=== PATIENT | female | born 1965 | race Caucasian/White ===

== ENCOUNTER 2016-12-18 18:32 | Emergency (ER) | payer MEDICAID ==
[~2016-12-18 18:32] MED LIST: COLACE100 MG PO; COUMADIN1 MG PO; COUMADIN5 MG PO; DIL2 PO; HYDROMORPHONE2 M1 PO; LEVOTHROID PO; LEVOTHYROXINE PO; NITROFURANTOIN100 MG PO; PER5 PO; PHENAZOPYRIDIN200 M3 PO; PRI20 PO; PROAIR HFA0.09 MG/A1 IH; PROAIR HFA0.09 MG/A1 INH; PROAIR HFA0.09 MG/Ac IH; PROAIR INH; SING10 PO; SYN88 PO; VENTOLIN H0.09 MG/A1 IH; WARFARIN SODIUM5 MG PO; XARELTO15 M1 PO
== END 2016-12-18 20:53 | disposition left against medical advice (07) ==
LOC: ED 18:32
DX: Z53.21 Procedure and treatment not carried out due to patient leaving prior to being seen by health care provider (principal)

== ENCOUNTER 2016-12-19 04:10 | Emergency (ER) | payer MEDICAID ==
[2016-12-19 05:05] VITALS: BP 131/98
== END 2016-12-19 05:05 | disposition home or self-care (01) ==
LOC: ED 04:10
DX: R06.00 Dyspnea, unspecified (principal); R07.0 Pain in throat; R07.89 Other chest pain; E03.9 Hypothyroidism, unspecified
CPT/HCPCS: J1885; J7613

== ENCOUNTER 2016-12-19 15:45 | Emergency (ER) | payer MEDICAID ==
[~2016-12-19] VITALS: Ht 154.9 cm; Wt 71.7 kg
[2016-12-19 20:09] LABS: BASOPHIL % 0.4 % (0-2); PLATELET COUNT 235 x10^3mcL (130-400); RED CELL DISTRIBUTION WIDTH 13.6 % (11.5-14.5)
[2016-12-19 20:39] LABS: CALCIUM 8.8 mg/dL (8.5-10.1); CARBON DIOXIDE 27.2 mmol/L (21-32); CHLORIDE SERUM 107 mmol/L (98-107); CREATININE SERUM 0.7 mg/dL (0.6-1.0); GFR1 > 60 mL/min; GLUCOSE SERUM 103 mg/dL (74-106); POTASSIUM SERUM 4.1 mmol/L (3.5-5.1); SODIUM SERUM 143 mmol/L (136-145)
[2016-12-19 20:43] LABS: ALBUMIN 3.4 g/dL (3.4-5.0); ALKALINE PHOSPHATASE 55 U/L (46-116); ALT/SGPT 19 U/L (14-59); AST/SGOT 14 U/L (15-37); BILIRUBIN TOTAL 0.5 mg/dL (0.20-1.00); TOTAL PROTEIN, SERUM 6.5 g/dL (6.4-8.2)
[2016-12-20 01:00] VITALS: BP 95/67
== END 2016-12-20 01:00 | disposition home or self-care (01) ==
LOC: ED 15:45
PROVIDERS: Emergency Medicine
DX: R06.00 Dyspnea, unspecified (principal); R07.9 Chest pain, unspecified; G89.29 Other chronic pain; E03.9 Hypothyroidism, unspecified; Z88.5 Allergy status to narcotic agent; Z79.899 Other long term (current) drug therapy
CPT/HCPCS: 85378; J7030; Q9967

== ENCOUNTER 2016-12-23 21:09 | Emergency (ER) | payer MEDICAID ==
[2016-12-23 22:14] LABS: BASOPHIL % 0.4 % (0-2); PLATELET COUNT 249 x10^3mcL (130-400); RED CELL DISTRIBUTION WIDTH 13.9 % (11.5-14.5)
[2016-12-23 22:19] LABS: CALCIUM 8.8 mg/dL (8.5-10.1); CARBON DIOXIDE 27.6 mmol/L (21-32); CHLORIDE SERUM 105 mmol/L (98-107); CREATININE SERUM 0.8 mg/dL (0.6-1.0); GFR1 > 60 mL/min; GLUCOSE SERUM 123 mg/dL (74-106); POTASSIUM SERUM 3.5 mmol/L (3.5-5.1); SODIUM SERUM 142 mmol/L (136-145)
[2016-12-23 22:24] LABS: ALBUMIN 3.6 g/dL (3.4-5.0); ALKALINE PHOSPHATASE 65 U/L (46-116); ALT/SGPT 23 U/L (14-59); AST/SGOT 16 U/L (15-37); BILIRUBIN TOTAL 0.4 mg/dL (0.20-1.00); TOTAL PROTEIN, SERUM 6.6 g/dL (6.4-8.2)
[2016-12-24 00:06] VITALS: BP 120/80
== END 2016-12-24 00:06 | disposition home or self-care (01) ==
LOC: ED 21:09
PROVIDERS: Specialist
DX: R07.9 Chest pain, unspecified (principal); J98.01 Acute bronchospasm; E03.9 Hypothyroidism, unspecified; F41.9 Anxiety disorder, unspecified; K21.9 Gastro-esophageal reflux disease without esophagitis; Z88.5 Allergy status to narcotic agent
CPT/HCPCS: 83880; J1885; J7613; J7644; Q0092

== ENCOUNTER 2016-12-31 19:00 | Emergency (ER) | payer MEDICAID ==
[~2016-12-31] VITALS: Ht 160 cm; Wt 69.8 kg
[2016-12-31 23:15] VITALS: BP 152/98
== END 2016-12-31 23:15 | disposition left against medical advice (07) ==
LOC: ED 19:00
DX: Z53.21 Procedure and treatment not carried out due to patient leaving prior to being seen by health care provider (principal)

== ENCOUNTER 2017-01-06 20:24 | Emergency (ER) | payer MEDICAID ==
[2017-01-06 23:09] VITALS: BP 144/76
== END 2017-01-06 23:09 | disposition home or self-care (01) ==
LOC: ED 20:24
DX: R07.89 Other chest pain (principal); E03.9 Hypothyroidism, unspecified; G89.29 Other chronic pain; Z88.5 Allergy status to narcotic agent; Z79.899 Other long term (current) drug therapy

== ENCOUNTER 2017-01-11 12:29 | Emergency (ER) | payer MEDICAID ==
[~2017-01-11] VITALS: Ht 157.5 cm; Wt 72.7 kg
[2017-01-11 14:04] VITALS: BP 134/89
== END 2017-01-11 14:11 | disposition home or self-care (01) ==
LOC: ED 12:29
DX: R07.89 Other chest pain (principal); R06.2 Wheezing; E03.9 Hypothyroidism, unspecified; Z86.718 Personal history of other venous thrombosis and embolism; Z79.899 Other long term (current) drug therapy; Z88.5 Allergy status to narcotic agent
CPT/HCPCS: J1885; J7620

== ENCOUNTER 2017-02-09 19:13 | Emergency (ER) | payer MEDICAID ==
[2017-02-09 20:58] LABS: BASOPHIL % 0.4 % (0-2); PLATELET COUNT 245 x10^3mcL (130-400); RED CELL DISTRIBUTION WIDTH 13.7 % (11.5-14.5)
[2017-02-09 21:12] LABS: CARBON DIOXIDE 26.5 mmol/L (21-32); CHLORIDE SERUM 105 mmol/L (98-107); CREATININE SERUM 0.7 mg/dL (0.6-1.0); GFR1 > 60 mL/min; GLUCOSE SERUM 121 mg/dL (74-106); POTASSIUM SERUM 3.6 mmol/L (3.5-5.1); SODIUM SERUM 139 mmol/L (136-145)
[2017-02-09 21:17] LABS: ALBUMIN 3.4 g/dL (3.4-5.0); ALKALINE PHOSPHATASE 66 U/L (46-116); ALT/SGPT 28 U/L (14-59); AST/SGOT 21 U/L (15-37); BILIRUBIN TOTAL 0.58 mg/dL (0.20-1.00); TOTAL PROTEIN, SERUM 6.7 g/dL (6.4-8.2)
[2017-02-09 21:21] LABS: CK-MB 0.5 ng/mL (0-3.6)
[2017-02-09 23:18] VITALS: BP 106/54
== END 2017-02-09 23:18 | disposition home or self-care (01) ==
LOC: ED 19:13
PROVIDERS: Emergency Medicine
DX: R11.10 Vomiting, unspecified (principal); R19.7 Diarrhea, unspecified; R07.89 Other chest pain; E03.9 Hypothyroidism, unspecified; G89.29 Other chronic pain; R07.0 Pain in throat; Z88.5 Allergy status to narcotic agent; Z88.8 Allergy status to other drugs, medicaments and biological substances; Z86.79 Personal history of other diseases of the circulatory system
CPT/HCPCS: 83880; J2405; J3010; J7030; J7613; J7644; Q0092

== ENCOUNTER 2017-02-24 10:58 | Emergency (ER) | payer MEDICAID ==
[~2017-02-24] VITALS: Ht 157.5 cm; Wt 71.7 kg
[2017-02-24 12:48] VITALS: BP 104/52
== END 2017-02-24 12:48 | disposition home or self-care (01) ==
LOC: ED 10:58
DX: R07.89 Other chest pain (principal); R06.2 Wheezing; R06.02 Shortness of breath; E03.9 Hypothyroidism, unspecified; Z88.5 Allergy status to narcotic agent; Z79.899 Other long term (current) drug therapy
CPT/HCPCS: J7620

== ENCOUNTER 2017-03-08 21:19 | Emergency (ER) | payer MEDICAID ==
[~2017-03-08] VITALS: Ht 165.1 cm; Wt 71.2 kg
[2017-03-09 00:32] VITALS: BP 138/79
== END 2017-03-09 00:32 | disposition home or self-care (01) ==
LOC: ED 21:19
DX: R20.2 Paresthesia of skin (principal); E03.9 Hypothyroidism, unspecified; G89.29 Other chronic pain; R07.0 Pain in throat; Z51.81 Encounter for therapeutic drug level monitoring
CPT/HCPCS: 36415

== ENCOUNTER 2017-03-15 22:01 | Emergency (ER) | payer MEDICAID ==
[2017-03-15 22:57] LABS: BASOPHIL % 0.3 % (0-2); PLATELET COUNT 268 x10^3mcL (130-400); RED CELL DISTRIBUTION WIDTH 13.9 % (11.5-14.5)
[2017-03-15 23:07] LABS: CALCIUM 9.1 mg/dL (8.5-10.1); CARBON DIOXIDE 27.2 mmol/L (21-32); CHLORIDE SERUM 103 mmol/L (98-107); CREATININE SERUM 0.7 mg/dL (0.6-1.0); GFR1 > 60 mL/min; GLUCOSE SERUM 104 mg/dL (74-106); POTASSIUM SERUM 3.5 mmol/L (3.5-5.1); SODIUM SERUM 138 mmol/L (136-145)
[2017-03-15 23:11] LABS: ALBUMIN 3.9 g/dL (3.4-5.0); ALKALINE PHOSPHATASE 60 U/L (46-116); ALT/SGPT 21 U/L (14-59); AST/SGOT 15 U/L (15-37); BILIRUBIN TOTAL 0.6 mg/dL (0.20-1.00); TOTAL PROTEIN, SERUM 7.2 g/dL (6.4-8.2)
[2017-03-15 23:16] LABS: CK-MB 0.9 ng/mL (0-3.6)
[2017-03-16 01:16] VITALS: BP 142/87
== END 2017-03-16 01:16 | disposition home or self-care (01) ==
LOC: ED 22:01
PROVIDERS: Emergency Medicine
DX: E86.0 Dehydration (principal); Z88.5 Allergy status to narcotic agent; Z88.8 Allergy status to other drugs, medicaments and biological substances; Z79.01 Long term (current) use of anticoagulants
CPT/HCPCS: J7030

== ENCOUNTER 2017-03-16 15:59 | Emergency (ER) | payer MEDICAID ==
[2017-03-16 21:49] VITALS: BP 122/73
== END 2017-03-16 21:49 | disposition home or self-care (01) ==
LOC: ED 15:59
DX: R51 Headache (principal); R19.7 Diarrhea, unspecified; R11.10 Vomiting, unspecified; E03.9 Hypothyroidism, unspecified; Z79.899 Other long term (current) drug therapy; Z86.711 Personal history of pulmonary embolism
CPT/HCPCS: J1200; J1885; J2765; J7030; Q0162

== ENCOUNTER 2017-04-17 18:01 | Emergency (ER) | payer MEDICAID ==
[2017-04-17 19:27] LABS: BASOPHIL % 0.6 % (0-2); PLATELET COUNT 267 x10^3mcL (130-400); RED CELL DISTRIBUTION WIDTH 13.3 % (11.5-14.5)
[2017-04-17 19:34] LABS: CALCIUM 8.7 mg/dL (8.5-10.1); CARBON DIOXIDE 25.2 mmol/L (21-32); CHLORIDE SERUM 106 mmol/L (98-107); CREATININE SERUM 0.7 mg/dL (0.6-1.0); GFR1 > 60 mL/min; GLUCOSE SERUM 103 mg/dL (74-106); POTASSIUM SERUM 3.6 mmol/L (3.5-5.1); SODIUM SERUM 140 mmol/L (136-145)
[2017-04-17 19:38] LABS: ALBUMIN 3.5 g/dL (3.4-5.0); ALKALINE PHOSPHATASE 56 U/L (46-116); ALT/SGPT 23 U/L (14-59); AMYLASE 77 U/L (25-115); AST/SGOT 16 U/L (15-37); LIPASE 180 IU/L (73-393); TOTAL PROTEIN, SERUM 6.9 g/dL (6.4-8.2)
[2017-04-17 22:30] LABS: AMPHETAMINE QUAL UR NONE DETECTED (NEG <=1000)
[2017-04-17 22:47] VITALS: BP 128/87
== END 2017-04-17 23:28 | disposition left against medical advice (07) ==
LOC: ED 18:01
PROVIDERS: Emergency Medicine
DX: R07.89 Other chest pain (principal); E03.9 Hypothyroidism, unspecified; Z86.711 Personal history of pulmonary embolism; Z79.01 Long term (current) use of anticoagulants; Z88.5 Allergy status to narcotic agent; Z88.8 Allergy status to other drugs, medicaments and biological substances
CPT/HCPCS: 85378; G0480; J1200; J2930; Q9967

== ENCOUNTER 2017-04-23 12:54 | Emergency (ER) | payer MEDICAID ==
[2017-04-23 16:49] LABS: CALCIUM 8.6 mg/dL (8.5-10.1); CARBON DIOXIDE 26.2 mmol/L (21-32); CHLORIDE SERUM 106 mmol/L (98-107); CREATININE SERUM 0.6 mg/dL (0.6-1.0); GFR1 > 60 mL/min; GLUCOSE SERUM 82 mg/dL (74-106); POTASSIUM SERUM 3.3 mmol/L (3.5-5.1); SODIUM SERUM 141 mmol/L (136-145)
[2017-04-23 16:50] LABS: BASOPHIL % 0.6 % (0-2); PLATELET COUNT 258 x10^3mcL (130-400); RED CELL DISTRIBUTION WIDTH 13.2 % (11.5-14.5)
[2017-04-23 16:53] LABS: ALBUMIN 3.4 g/dL (3.4-5.0); ALKALINE PHOSPHATASE 61 U/L (46-116); ALT/SGPT 22 U/L (14-59); AST/SGOT 16 U/L (15-37); BILIRUBIN TOTAL 0.44 mg/dL (0.20-1.00)
[2017-04-23 17:12] VITALS: BP 131/74
== END 2017-04-23 18:53 | disposition home or self-care (01) ==
LOC: ED 12:54
PROVIDERS: Specialist
DX: R07.9 Chest pain, unspecified (principal); J98.01 Acute bronchospasm; E87.6 Hypokalemia; G89.29 Other chronic pain; E03.9 Hypothyroidism, unspecified; Z88.5 Allergy status to narcotic agent; Z88.8 Allergy status to other drugs, medicaments and biological substances
CPT/HCPCS: 36415; 83880; J1885; J7613; J7644; Q0092

== ENCOUNTER 2017-05-30 21:29 | Emergency (ER) | payer MEDICAID ==
[2017-05-30 23:28] LABS: BASOPHIL % 0.7 % (0-2); PLATELET COUNT 249 x10^3mcL (130-400); RED CELL DISTRIBUTION WIDTH 12.9 % (11.5-14.5)
[2017-05-30 23:34] LABS: CALCIUM 8.5 mg/dL (8.5-10.1); CARBON DIOXIDE 28.6 mmol/L (21-32); CHLORIDE SERUM 105 mmol/L (98-107); CREATININE SERUM 0.7 mg/dL (0.6-1.0); GFR1 > 60 mL/min; GLUCOSE SERUM 93 mg/dL (74-106); POTASSIUM SERUM 3.6 mmol/L (3.5-5.1); SODIUM SERUM 137 mmol/L (136-145)
[2017-05-31 00:42] VITALS: BP 127/78
== END 2017-05-31 00:42 | disposition home or self-care (01) ==
LOC: ED 21:29
PROVIDERS: Emergency Medicine
DX: R06.02 Shortness of breath (principal); R51 Headache; Z85.42 Personal history of malignant neoplasm of other parts of uterus; Z90.710 Acquired absence of both cervix and uterus; E03.9 Hypothyroidism, unspecified; Z88.5 Allergy status to narcotic agent
CPT/HCPCS: 36415; Q0092

== ENCOUNTER 2017-06-28 18:21 | Emergency (ER) | payer MEDICAID ==
[2017-06-28 21:50] VITALS: BP 108/64
== END 2017-06-28 22:07 | disposition home or self-care (01) ==
LOC: ED 18:21
DX: J38.6 Stenosis of larynx (principal); E03.9 Hypothyroidism, unspecified; Z88.5 Allergy status to narcotic agent; Z88.8 Allergy status to other drugs, medicaments and biological substances
CPT/HCPCS: J1100; J7613

== ENCOUNTER 2017-07-15 19:46 | Emergency (ER) | payer MEDICAID ==
[2017-07-15 23:04] LABS: BASOPHIL % 1.3 % (0-2); PLATELET COUNT 287 x10^3mcL (130-400); RED CELL DISTRIBUTION WIDTH 13.6 % (11.5-14.5)
[2017-07-15 23:19] LABS: CALCIUM 8.5 mg/dL (8.5-10.1); CARBON DIOXIDE 28.6 mmol/L (21-32); CHLORIDE SERUM 105 mmol/L (98-107); CREATININE SERUM 0.7 mg/dL (0.6-1.0); GFR1 > 60 mL/min; GLUCOSE SERUM 95 mg/dL (74-106); POTASSIUM SERUM 3.8 mmol/L (3.5-5.1); SODIUM SERUM 139 mmol/L (136-145)
[2017-07-15 23:24] LABS: ALBUMIN 3.4 g/dL (3.4-5.0); ALKALINE PHOSPHATASE 71 U/L (46-116); ALT/SGPT 26 U/L (14-59); AST/SGOT 18 U/L (15-37); BILIRUBIN TOTAL 0.9 mg/dL (0.20-1.00); TOTAL PROTEIN, SERUM 7.1 g/dL (6.4-8.2)
[2017-07-15 23:58] VITALS: BP 110/65
== END 2017-07-15 23:45 | disposition home or self-care (01) ==
LOC: ED 19:46
PROVIDERS: Specialist
DX: J45.909 Unspecified asthma, uncomplicated (principal); E03.9 Hypothyroidism, unspecified; Z88.5 Allergy status to narcotic agent; Z88.6 Allergy status to analgesic agent
CPT/HCPCS: 36415; 83880; J1885; J7613; J7644; Q0092

== ENCOUNTER 2017-07-19 19:48 | Emergency (ER) | payer MEDICAID ==
[~2017-07-19] VITALS: Ht 157.5 cm; Wt 72.6 kg
[2017-07-19 20:52] LABS: microscopic required? NO
[2017-07-19 20:55] LABS: BASOPHIL % 0.4 % (0-2); PLATELET COUNT 252 x10^3mcL (130-400); RED CELL DISTRIBUTION WIDTH 13.9 % (11.5-14.5)
[2017-07-19 20:58] LABS: CALCIUM 8.4 mg/dL (8.5-10.1); CHLORIDE SERUM 106 mmol/L (98-107); CREATININE SERUM 0.8 mg/dL (0.6-1.0); GFR1 > 60 mL/min; GLUCOSE SERUM 126 mg/dL (74-106); POTASSIUM SERUM 3.1 mmol/L (3.5-5.1); SODIUM SERUM 140 mmol/L (136-145)
[2017-07-19 21:01] LABS: UA SPECIFIC GRAVITY 1.025 (1.005-1.035); urine erythrocyte NEGATIVE (NEGATIVE)
[2017-07-19 21:03] LABS: ALBUMIN 3.3 g/dL (3.4-5.0); ALKALINE PHOSPHATASE 70 U/L (46-116); ALT/SGPT 31 U/L (14-59); AST/SGOT 22 U/L (15-37); BILIRUBIN TOTAL 0.4 mg/dL (0.20-1.00); TOTAL PROTEIN, SERUM 6.6 g/dL (6.4-8.2)
[2017-07-19 21:10] LABS: AMPHETAMINE QUAL UR NONE DETECTED (NEG <=1000)
[2017-07-19 23:14] VITALS: BP 132/96
== END 2017-07-19 23:14 | disposition left against medical advice (07) ==
LOC: ED 19:48
PROVIDERS: Emergency Medicine
DX: R06.02 Shortness of breath (principal); R07.9 Chest pain, unspecified; E03.9 Hypothyroidism, unspecified; G89.29 Other chronic pain; Z88.5 Allergy status to narcotic agent
CPT/HCPCS: 36415; J7620

== ENCOUNTER 2017-08-04 15:21 | Emergency (ER) | payer MEDICAID ==
[2017-08-04 18:32] LABS: BASOPHIL % 0.4 % (0-2); PLATELET COUNT 316 x10^3mcL (130-400); RED CELL DISTRIBUTION WIDTH 14.2 % (11.5-14.5)
[2017-08-04 18:38] LABS: CALCIUM 8.7 mg/dL (8.5-10.1); CARBON DIOXIDE 30.5 mmol/L (21-32); CHLORIDE SERUM 105 mmol/L (98-107); CREATININE SERUM 0.8 mg/dL (0.6-1.0); GFR1 > 60 mL/min; GLUCOSE SERUM 109 mg/dL (74-106); POTASSIUM SERUM 3.3 mmol/L (3.5-5.1); SODIUM SERUM 141 mmol/L (136-145)
[2017-08-04 18:43] LABS: ALBUMIN 3.6 g/dL (3.4-5.0); ALKALINE PHOSPHATASE 72 U/L (46-116); ALT/SGPT 29 U/L (14-59); AST/SGOT 20 U/L (15-37); BILIRUBIN TOTAL 0.52 mg/dL (0.20-1.00); TOTAL PROTEIN, SERUM 7.2 g/dL (6.4-8.2)
[2017-08-04 19:24] VITALS: BP 133/107
== END 2017-08-04 19:24 | disposition home or self-care (01) ==
LOC: ED 15:21
PROVIDERS: Emergency Medicine
DX: R07.89 Other chest pain (principal); E03.9 Hypothyroidism, unspecified; G89.29 Other chronic pain; R07.0 Pain in throat; Z88.5 Allergy status to narcotic agent; Z88.8 Allergy status to other drugs, medicaments and biological substances; Z79.01 Long term (current) use of anticoagulants
CPT/HCPCS: 36415; 83880; J7613; J7644; Q0092

== ENCOUNTER 2017-08-25 18:55 | Emergency (ER) | payer MEDICAID ==
[2017-08-25 21:16] VITALS: BP 129/87
== END 2017-08-25 21:16 | disposition home or self-care (01) ==
LOC: ED 18:55
DX: J45.909 Unspecified asthma, uncomplicated (principal); E03.9 Hypothyroidism, unspecified; G89.29 Other chronic pain; R07.0 Pain in throat; Z88.8 Allergy status to other drugs, medicaments and biological substances; Z88.5 Allergy status to narcotic agent; Z79.01 Long term (current) use of anticoagulants
CPT/HCPCS: J1100; J7613; J7620

== ENCOUNTER 2017-09-14 05:43 | Emergency (ER) | payer MEDICAID ==
[~2017-09-14] VITALS: Ht 157.5 cm; Wt 69.8 kg
[2017-09-14 05:54] VITALS: Ht 157.5 cm; Wt 69.8 kg
[2017-09-14 08:44] VITALS: BP 108/62
== END 2017-09-14 08:44 | disposition home or self-care (01) ==
LOC: ED 05:43
DX: J06.9 Acute upper respiratory infection, unspecified (principal); E03.9 Hypothyroidism, unspecified; Z85.42 Personal history of malignant neoplasm of other parts of uterus; Z90.710 Acquired absence of both cervix and uterus
CPT/HCPCS: J1100; J7620; Q0092

== ENCOUNTER 2017-09-25 18:18 | Emergency (ER) | payer MEDICAID ==
[2017-09-25 23:32] LABS: BASOPHIL % 0.7 % (0-2); PLATELET COUNT 267 x10^3mcL (130-400); RED CELL DISTRIBUTION WIDTH 13.7 % (11.5-14.5)
[2017-09-25 23:40] LABS: CALCIUM 8.7 mg/dL (8.5-10.1); CARBON DIOXIDE 26.7 mmol/L (21-32); CHLORIDE SERUM 105 mmol/L (98-107); CREATININE SERUM 0.7 mg/dL (0.6-1.0); GFR1 > 60 mL/min; GLUCOSE SERUM 93 mg/dL (74-106); POTASSIUM SERUM 3.7 mmol/L (3.5-5.1); SODIUM SERUM 141 mmol/L (136-145)
[2017-09-25 23:46] LABS: ALBUMIN 3.7 g/dL (3.4-5.0); ALKALINE PHOSPHATASE 60 U/L (46-116); ALT/SGPT 25 U/L (14-59); AST/SGOT 18 U/L (15-37); BILIRUBIN TOTAL 0.5 mg/dL (0.20-1.00); TOTAL PROTEIN, SERUM 7.5 g/dL (6.4-8.2)
[2017-09-26 02:51] VITALS: BP 120/74
== END 2017-09-26 02:51 | disposition home or self-care (01) ==
LOC: ED 18:18
PROVIDERS: Emergency Medicine Emergency Medical Services
DX: J98.01 Acute bronchospasm (principal); E03.9 Hypothyroidism, unspecified; G89.29 Other chronic pain; R07.0 Pain in throat; Z88.5 Allergy status to narcotic agent; Z88.8 Allergy status to other drugs, medicaments and biological substances; Z86.79 Personal history of other diseases of the circulatory system
CPT/HCPCS: 36415; 85378; J7613; Q0092

== ENCOUNTER 2017-09-29 03:25 | Emergency (ER) | payer MEDICAID ==
[~2017-09-29] VITALS: Ht 157.5 cm; Wt 75.3 kg
[2017-09-29 03:57] VITALS: Ht 157.5 cm; Wt 75.3 kg
[2017-09-29 07:24] VITALS: BP 144/79
== END 2017-09-29 07:24 | disposition home or self-care (01) ==
LOC: ED 03:25
DX: J20.9 Acute bronchitis, unspecified (principal); E03.9 Hypothyroidism, unspecified; G89.29 Other chronic pain; R07.0 Pain in throat; Z88.5 Allergy status to narcotic agent; Z88.8 Allergy status to other drugs, medicaments and biological substances; Z86.79 Personal history of other diseases of the circulatory system
CPT/HCPCS: Q0092

== ENCOUNTER 2017-10-09 18:10 | Emergency (ER) | payer MEDICAID ==
[~2017-10-09] VITALS: Ht 157.5 cm; Wt 75.7 kg
[2017-10-09 18:23] VITALS: Ht 157.5 cm; Wt 75.7 kg
[2017-10-09 20:23] VITALS: BP 138/86
== END 2017-10-09 20:38 | disposition home or self-care (01) ==
LOC: ED 18:10
DX: J06.9 Acute upper respiratory infection, unspecified (principal); E03.9 Hypothyroidism, unspecified; Z85.42 Personal history of malignant neoplasm of other parts of uterus; Z90.710 Acquired absence of both cervix and uterus; Z88.5 Allergy status to narcotic agent
CPT/HCPCS: J1100

== ENCOUNTER 2017-10-23 20:39 | Emergency (ER) | payer MEDICAID ==
[~2017-10-23] VITALS: Ht 157.5 cm; Wt 74.8 kg
[2017-10-23 21:05] VITALS: Ht 157.5 cm; Wt 74.8 kg
[2017-10-23 22:52] VITALS: BP 99/70
== END 2017-10-23 22:52 | disposition home or self-care (01) ==
LOC: ED 20:39
DX: J20.9 Acute bronchitis, unspecified (principal)

== ENCOUNTER 2017-10-29 16:46 | Emergency (ER) | payer MEDICAID ==
[~2017-10-29] VITALS: Ht 157.5 cm; Wt 75.3 kg
[2017-10-29 17:05] VITALS: Ht 157.5 cm; Wt 75.3 kg
[2017-10-29 22:11] VITALS: BP 128/65
== END 2017-10-29 22:12 | disposition home or self-care (01) ==
LOC: ED 16:46
DX: J45.901 Unspecified asthma with (acute) exacerbation (principal); J06.9 Acute upper respiratory infection, unspecified; E03.9 Hypothyroidism, unspecified; Z90.710 Acquired absence of both cervix and uterus
CPT/HCPCS: J1100

== ENCOUNTER 2017-12-07 19:18 | Emergency (ER) | payer MEDICAID ==
[~2017-12-07] VITALS: Ht 154.9 cm; Wt 74.4 kg
[2017-12-07 19:35] VITALS: Ht 154.9 cm; Wt 74.4 kg
[2017-12-07 21:14] VITALS: BP 127/83
== END 2017-12-07 21:14 | disposition home or self-care (01) ==
LOC: ED 19:18
DX: S83.8X2A Sprain of other specified parts of left knee, initial encounter (principal); G89.29 Other chronic pain; R07.0 Pain in throat; E03.9 Hypothyroidism, unspecified; Z98.890 Other specified postprocedural states; Z86.79 Personal history of other diseases of the circulatory system; Z88.8 Allergy status to other drugs, medicaments and biological substances; Z88.5 Allergy status to narcotic agent; Y93.89 Activity, other specified; W18.30XA Fall on same level, unspecified, initial encounter; Y99.8 Other external cause status; Y92.89 Other specified places as the place of occurrence of the external cause

== ENCOUNTER 2018-01-05 08:29 | Emergency (ER) | payer MEDICAID ==
[~2018-01-05] VITALS: Ht 154.9 cm; Wt 73.0 kg
[2018-01-05 08:36] VITALS: Ht 154.9 cm; Wt 73.0 kg
[2018-01-05 09:53] LABS: BASOPHIL % 0.3 % (0-2); PLATELET COUNT 295 x10^3mcL (130-400); RED CELL DISTRIBUTION WIDTH 13.9 % (11.5-14.5)
[2018-01-05 10:00] LABS: CALCIUM 9.2 mg/dL (8.5-10.1); CARBON DIOXIDE 33.6 mmol/L (21-32); CHLORIDE SERUM 102 mmol/L (98-107); CREATININE SERUM 0.6 mg/dL (0.6-1.0); GFR1 > 60 mL/min; GLUCOSE SERUM 92 mg/dL (74-106); POTASSIUM SERUM 3.7 mmol/L (3.5-5.1); SODIUM SERUM 138 mmol/L (136-145)
[2018-01-05 10:13] VITALS: BP 116/79
== END 2018-01-05 10:13 | disposition home or self-care (01) ==
LOC: ED 08:29
PROVIDERS: Specialist
DX: R07.89 Other chest pain (principal); Z76.0 Encounter for issue of repeat prescription; E03.9 Hypothyroidism, unspecified; G89.29 Other chronic pain; R07.0 Pain in throat; Z86.79 Personal history of other diseases of the circulatory system; Z88.5 Allergy status to narcotic agent
CPT/HCPCS: 36415; Q0092

== ENCOUNTER 2018-01-13 16:05 | Emergency (ER) | payer MEDICAID ==
[~2018-01-13] VITALS: Ht 157.5 cm; Wt 75.3 kg
[2018-01-13 16:33] VITALS: Ht 157.5 cm; Wt 75.3 kg
[2018-01-13 17:27] LABS: BASOPHIL % 0.5 % (0-2); PLATELET COUNT 281 x10^3mcL (130-400); RED CELL DISTRIBUTION WIDTH 13.8 % (11.5-14.5)
[2018-01-13 17:37] LABS: CALCIUM 8.6 mg/dL (8.5-10.1); CARBON DIOXIDE 29.9 mmol/L (21-32); CHLORIDE SERUM 105 mmol/L (98-107); CREATININE SERUM 0.7 mg/dL (0.6-1.0); GFR1 > 60 mL/min; GLUCOSE SERUM 108 mg/dL (74-106); POTASSIUM SERUM 3.6 mmol/L (3.5-5.1); SODIUM SERUM 139 mmol/L (136-145)
[2018-01-13 17:41] LABS: ALBUMIN 3.7 g/dL (3.4-5.0); ALKALINE PHOSPHATASE 64 U/L (46-116); ALT/SGPT 23 U/L (14-59); AST/SGOT 16 U/L (15-37); BILIRUBIN TOTAL 0.5 mg/dL (0.20-1.00); TOTAL PROTEIN, SERUM 7.1 g/dL (6.4-8.2)
[2018-01-13 18:57] VITALS: BP 117/62
== END 2018-01-13 18:57 | disposition home or self-care (01) ==
LOC: ED 16:05
PROVIDERS: Emergency Medicine
DX: R07.2 Precordial pain (principal); E03.9 Hypothyroidism, unspecified; Z90.710 Acquired absence of both cervix and uterus; Z88.6 Allergy status to analgesic agent
CPT/HCPCS: 36415; 85378

== ENCOUNTER 2018-01-17 04:54 | Emergency (ER) | payer MEDICAID ==
[~2018-01-17] VITALS: Ht 157.5 cm; Wt 74.8 kg
[2018-01-17 04:59] VITALS: Ht 157.5 cm; Wt 74.8 kg
[2018-01-17 05:35] LABS: BASOPHIL % 0.5 % (0-2); PLATELET COUNT 277 x10^3mcL (130-400); RED CELL DISTRIBUTION WIDTH 13.8 % (11.5-14.5)
[2018-01-17 05:43] LABS: CARBON DIOXIDE 27.3 mmol/L (21-32); CHLORIDE SERUM 105 mmol/L (98-107); CREATININE SERUM 0.7 mg/dL (0.6-1.0); GFR1 > 60 mL/min; GLUCOSE SERUM 100 mg/dL (74-106); POTASSIUM SERUM 3.4 mmol/L (3.5-5.1); SODIUM SERUM 142 mmol/L (136-145)
[2018-01-17 05:48] LABS: ALBUMIN 3.8 g/dL (3.4-5.0); ALKALINE PHOSPHATASE 67 U/L (46-116); ALT/SGPT 21 U/L (14-59); AST/SGOT 20 U/L (15-37); TOTAL PROTEIN, SERUM 7.3 g/dL (6.4-8.2)
[2018-01-17 07:00] VITALS: BP 104/73
== END 2018-01-17 08:17 | disposition left against medical advice (07) ==
LOC: ED 04:54
PROVIDERS: Emergency Medicine
DX: R07.2 Precordial pain (principal); E03.9 Hypothyroidism, unspecified; Z88.6 Allergy status to analgesic agent; Z90.710 Acquired absence of both cervix and uterus
CPT/HCPCS: 36415; 83880; 85378; Q0092; Q9967

== ENCOUNTER 2018-01-17 18:35 | Emergency (ER) | payer MEDICAID ==
[~2018-01-17] VITALS: Ht 154.9 cm; Wt 72.1 kg
[2018-01-17 19:45] LABS: BASOPHIL % 0.8 % (0-2); PLATELET COUNT 280 x10^3mcL (130-400); RED CELL DISTRIBUTION WIDTH 13.9 % (11.5-14.5)
[2018-01-17 19:58] LABS: CARBON DIOXIDE 26.3 mmol/L (21-32); CHLORIDE SERUM 105 mmol/L (98-107); CREATININE SERUM 0.8 mg/dL (0.6-1.0); GFR1 > 60 mL/min; GLUCOSE SERUM 119 mg/dL (74-106); POTASSIUM SERUM 3.2 mmol/L (3.5-5.1); SODIUM SERUM 141 mmol/L (136-145)
[2018-01-17 20:02] LABS: ALBUMIN 3.9 g/dL (3.4-5.0); ALKALINE PHOSPHATASE 68 U/L (46-116); ALT/SGPT 22 U/L (14-59); AST/SGOT 17 U/L (15-37); BILIRUBIN TOTAL 0.8 mg/dL (0.20-1.00); TOTAL PROTEIN, SERUM 7.5 g/dL (6.4-8.2)
[2018-01-17 23:43] VITALS: BP 113/66
== END 2018-01-17 23:44 | disposition home or self-care (01) ==
LOC: ED 18:35
PROVIDERS: Emergency Medicine
DX: R07.89 Other chest pain (principal); J45.909 Unspecified asthma, uncomplicated; E03.9 Hypothyroidism, unspecified; Z88.5 Allergy status to narcotic agent
CPT/HCPCS: 83880; 85378; J1200; Q0092; Q9967

== ENCOUNTER 2018-01-28 15:57 | Emergency (ER) | payer SELFPAY ==
[~2018-01-28] VITALS: Ht 157.5 cm; Wt 72.6 kg
[2018-01-28 18:56] VITALS: BP 120/65
== END 2018-01-28 18:56 | disposition home or self-care (01) ==
LOC: ED 15:57
DX: T78.09XA Anaphylactic reaction due to other food products, initial encounter (principal); J45.909 Unspecified asthma, uncomplicated; E03.9 Hypothyroidism, unspecified; G89.29 Other chronic pain; R07.0 Pain in throat; Z90.710 Acquired absence of both cervix and uterus; Z88.5 Allergy status to narcotic agent
CPT/HCPCS: J7512

== ENCOUNTER 2018-03-18 16:49 | Emergency (ER) | payer MEDICAID ==
[~2018-03-18] VITALS: Ht 157.5 cm; Wt 72.6 kg
[2018-03-18 16:58] VITALS: Ht 157.5 cm; Wt 72.6 kg
[2018-03-18 19:18] VITALS: BP 113/65
== END 2018-03-18 19:18 | disposition home or self-care (01) ==
LOC: ED 16:49
DX: S70.01XA Contusion of right hip, initial encounter (principal); J45.909 Unspecified asthma, uncomplicated; Z88.5 Allergy status to narcotic agent; Z76.0 Encounter for issue of repeat prescription; X58.XXXA Exposure to other specified factors, initial encounter; Y93.89 Activity, other specified; Y92.89 Other specified places as the place of occurrence of the external cause; Y99.8 Other external cause status; E03.9 Hypothyroidism, unspecified
CPT/HCPCS: J1885

== ENCOUNTER 2018-03-21 16:32 | Emergency (ER) | payer MEDICAID ==
[~2018-03-21] VITALS: Ht 154.9 cm; Wt 72.8 kg
[2018-03-21 16:40] VITALS: Ht 154.9 cm; Wt 72.8 kg
[2018-03-21 17:33] LABS: BASOPHIL % 0.8 % (0-2); PLATELET COUNT 269 x10^3mcL (130-400); RED CELL DISTRIBUTION WIDTH 13.5 % (11.5-14.5)
[2018-03-21 18:44] LABS: CALCIUM 8.9 mg/dL (8.5-10.1); CARBON DIOXIDE 23.9 mmol/L (21-32); CHLORIDE SERUM 106 mmol/L (98-107); CREATININE SERUM 0.7 mg/dL (0.6-1.0); GFR1 > 60 mL/min; GLUCOSE SERUM 97 mg/dL (74-106); POTASSIUM SERUM 3.7 mmol/L (3.5-5.1); SODIUM SERUM 141 mmol/L (136-145)
[2018-03-21 18:48] LABS: ALBUMIN 3.6 g/dL (3.4-5.0); ALKALINE PHOSPHATASE 75 U/L (46-116); ALT/SGPT 19 U/L (14-59); AST/SGOT 19 U/L (15-37); BILIRUBIN TOTAL 0.35 mg/dL (0.20-1.00)
[2018-03-21 19:53] VITALS: BP 128/91
== END 2018-03-21 19:53 | disposition home or self-care (01) ==
LOC: ED 16:32
PROVIDERS: Emergency Medicine
DX: R07.89 Other chest pain (principal); F41.9 Anxiety disorder, unspecified; J45.909 Unspecified asthma, uncomplicated; G89.29 Other chronic pain; R07.0 Pain in throat; Z88.5 Allergy status to narcotic agent; Z88.8 Allergy status to other drugs, medicaments and biological substances
CPT/HCPCS: 36415; Q0092

== ENCOUNTER 2018-04-30 14:02 | Emergency (ER) | payer MEDICAID ==
[~2018-04-30] VITALS: Ht 154.9 cm; Wt 69.9 kg
[2018-04-30 14:03] VITALS: Ht 154.9 cm; Wt 69.9 kg
[2018-04-30 15:05] VITALS: BP 157/76
== END 2018-04-30 15:05 | disposition home or self-care (01) ==
LOC: ED 14:02
DX: R55 Syncope and collapse (principal); J45.909 Unspecified asthma, uncomplicated; G89.29 Other chronic pain; R07.0 Pain in throat; E03.9 Hypothyroidism, unspecified; Z88.5 Allergy status to narcotic agent; Z90.710 Acquired absence of both cervix and uterus
CPT/HCPCS: 82962

== ENCOUNTER 2018-05-26 13:33 | Emergency (ER) | payer MEDICAID ==
[~2018-05-26] VITALS: Ht 160 cm; Wt 72.1 kg
[2018-05-26 13:35] VITALS: Ht 160 cm; Wt 72.1 kg
[2018-05-26 14:47] LABS: BASOPHIL % 0.5 % (0-2); PLATELET COUNT 303 x10^3mcL (130-400); RED CELL DISTRIBUTION WIDTH 12.9 % (11.5-14.5)
[2018-05-26 14:51] LABS: CARBON DIOXIDE 30.3 mmol/L (21-32); CHLORIDE SERUM 106 mmol/L (98-107); CREATININE SERUM 0.7 mg/dL (0.6-1.0); GFR1 > 60 mL/min; GLUCOSE SERUM 95 mg/dL (74-106); POTASSIUM SERUM 3.8 mmol/L (3.5-5.1); SODIUM SERUM 142 mmol/L (136-145)
[2018-05-26 14:55] LABS: ALBUMIN 3.7 g/dL (3.4-5.0); ALKALINE PHOSPHATASE 68 U/L (46-116); ALT/SGPT 26 U/L (14-59); AST/SGOT 20 U/L (15-37); BILIRUBIN TOTAL 0.5 mg/dL (0.20-1.00); TOTAL PROTEIN, SERUM 7.1 g/dL (6.4-8.2)
[2018-05-26 15:03] LABS: FREE T4 0.68 ng/dL (0.76-1.46)
[2018-05-26 15:04] LABS: FREE THYROXINE INDEX 1.3 ug/dL (1.4-4.5); T4(THYROXINE) 4.4 ug/dL (4.7-13.3)
[2018-05-26 15:34] LABS: T3 TOTAL 1.03 ng/mL
[2018-05-26 15:40] VITALS: BP 138/78
== END 2018-05-26 15:40 | disposition home or self-care (01) ==
LOC: ED 13:33
PROVIDERS: Emergency Medicine
DX: R42 Dizziness and giddiness (principal); J45.909 Unspecified asthma, uncomplicated; E03.9 Hypothyroidism, unspecified; Z90.49 Acquired absence of other specified parts of digestive tract; G89.29 Other chronic pain; Z88.5 Allergy status to narcotic agent
CPT/HCPCS: 36415; 84439; J8597

== ENCOUNTER 2018-09-15 12:47 | Emergency (ER) | payer MEDICAID ==
[~2018-09-15] VITALS: Ht 154.9 cm; Wt 72.6 kg
[2018-09-15 13:01] VITALS: Ht 154.9 cm; Wt 72.6 kg
[2018-09-15 13:53] VITALS: BP 139/67
== END 2018-09-15 13:53 | disposition home or self-care (01) ==
LOC: ED 12:47
DX: R06.02 Shortness of breath (principal); R06.2 Wheezing; G89.29 Other chronic pain; E03.9 Hypothyroidism, unspecified; Z90.710 Acquired absence of both cervix and uterus; Z98.890 Other specified postprocedural states; Z88.5 Allergy status to narcotic agent
CPT/HCPCS: J2930; J7613; J7644

== ENCOUNTER 2018-10-07 16:26 | Emergency (ER) | payer MEDICAID ==
[~2018-10-07] VITALS: Ht 157.5 cm; Wt 77.6 kg
[2018-10-07 17:00] VITALS: Ht 157.5 cm; Wt 77.6 kg
[2018-10-07 18:26] VITALS: BP 145/93
== END 2018-10-07 18:26 | disposition home or self-care (01) ==
LOC: ED 16:26
DX: S62.292A Other fracture of first metacarpal bone, left hand, initial encounter for closed fracture (principal); J45.909 Unspecified asthma, uncomplicated; E03.9 Hypothyroidism, unspecified; G89.29 Other chronic pain; Z90.710 Acquired absence of both cervix and uterus; Z88.5 Allergy status to narcotic agent; Z98.890 Other specified postprocedural states; W22.8XXA Striking against or struck by other objects, initial encounter; Y93.89 Activity, other specified; Y92.89 Other specified places as the place of occurrence of the external cause; Y99.8 Other external cause status
CPT/HCPCS: 90715

== ENCOUNTER 2018-11-10 13:49 | Emergency (ER) | payer MEDICAID ==
[2018-11-10 17:26] VITALS: BP 121/76
== END 2018-11-10 17:26 | disposition home or self-care (01) ==
LOC: ED 13:49
DX: R07.89 Other chest pain (principal); J45.909 Unspecified asthma, uncomplicated; E03.9 Hypothyroidism, unspecified; G89.29 Other chronic pain; Z76.0 Encounter for issue of repeat prescription; Z90.710 Acquired absence of both cervix and uterus; Z98.890 Other specified postprocedural states; Z88.5 Allergy status to narcotic agent; Z88.8 Allergy status to other drugs, medicaments and biological substances

== ENCOUNTER 2018-12-09 16:41 | Emergency (ER) | payer MEDICAID ==
[~2018-12-09] VITALS: Ht 157.5 cm; Wt 77.6 kg
[2018-12-09 17:06] VITALS: Ht 157.5 cm; Wt 77.6 kg
[2018-12-09 17:56] LABS: BASOPHIL % 0.2 % (0-2); PLATELET COUNT 255 x10^3mcL (130-400); RED CELL DISTRIBUTION WIDTH 13.5 % (11.5-14.5)
[2018-12-09 18:34] LABS: CARBON DIOXIDE 28.7 mmol/L (21-32); CHLORIDE SERUM 106 mmol/L (98-107); CREATININE SERUM 0.6 mg/dL (0.6-1.0); GFR1 > 60 mL/min; GLUCOSE SERUM 97 mg/dL (74-106); SODIUM SERUM 143 mmol/L (136-145)
[2018-12-09 18:38] LABS: ALBUMIN 3.5 g/dL (3.4-5.0); ALKALINE PHOSPHATASE 71 U/L (46-116); ALT/SGPT 18 U/L (14-59); AST/SGOT 21 U/L (15-37); BILIRUBIN TOTAL 0.44 mg/dL (0.20-1.00)
[2018-12-09 18:51] LABS: FREE T4 0.86 ng/dL (0.76-1.46); FREE THYROXINE INDEX 2.5 ug/dL (1.4-4.5); T4(THYROXINE) 7.1 ug/dL (4.7-13.3)
[2018-12-09 18:52] LABS: T3 TOTAL 1.18 ng/mL
[2018-12-09 19:02] VITALS: BP 156/99
== END 2018-12-09 19:16 | disposition home or self-care (01) ==
LOC: ED 16:41
PROVIDERS: Emergency Medicine
DX: G62.9 Polyneuropathy, unspecified (principal); J45.909 Unspecified asthma, uncomplicated; E03.9 Hypothyroidism, unspecified; Z90.710 Acquired absence of both cervix and uterus; Z76.0 Encounter for issue of repeat prescription; Z88.6 Allergy status to analgesic agent; Z88.5 Allergy status to narcotic agent
CPT/HCPCS: 36415; 84439

== ENCOUNTER 2019-02-13 14:24 | Emergency (ER) | payer MEDICAID ==
[~2019-02-13] VITALS: Ht 157.5 cm; Wt 75.8 kg
[2019-02-13 14:32] VITALS: BP 111/80; Ht 157.5 cm; Wt 75.8 kg
== END 2019-02-13 17:49 | disposition home or self-care (01) ==
LOC: ED 14:24
DX: M54.12 Radiculopathy, cervical region (principal); E03.9 Hypothyroidism, unspecified; J45.909 Unspecified asthma, uncomplicated; Z90.710 Acquired absence of both cervix and uterus; Z88.6 Allergy status to analgesic agent; Z88.5 Allergy status to narcotic agent

== ENCOUNTER 2019-03-30 10:17 | Emergency (ER) | payer MEDICAID ==
[~2019-03-30] VITALS: Ht 157.5 cm; Wt 75.0 kg
[2019-03-30 10:29] VITALS: Ht 157.5 cm; Wt 75.0 kg
[2019-03-30 12:17] VITALS: BP 138/96
== END 2019-03-30 12:17 | disposition home or self-care (01) ==
LOC: ED 10:17
DX: M65.352 Trigger finger, left little finger (principal); J45.909 Unspecified asthma, uncomplicated; E03.9 Hypothyroidism, unspecified; G89.29 Other chronic pain; Z85.42 Personal history of malignant neoplasm of other parts of uterus; Z90.710 Acquired absence of both cervix and uterus; Z88.8 Allergy status to other drugs, medicaments and biological substances; Z88.6 Allergy status to analgesic agent; Z76.0 Encounter for issue of repeat prescription

== ENCOUNTER 2019-04-28 02:00 | Emergency (ER) | payer MEDICAID ==
[~2019-04-28] VITALS: Ht 165.1 cm; Wt 74.4 kg
[2019-04-28 02:15] VITALS: Ht 165.1 cm; Wt 74.4 kg
[2019-04-28 04:12] VITALS: BP 111/63
== END 2019-04-28 04:12 | disposition home or self-care (01) ==
LOC: ED 02:00
DX: J39.8 Other specified diseases of upper respiratory tract (principal); J45.909 Unspecified asthma, uncomplicated; E03.9 Hypothyroidism, unspecified; G89.29 Other chronic pain; R07.0 Pain in throat; Z90.710 Acquired absence of both cervix and uterus; Z88.6 Allergy status to analgesic agent; Z88.5 Allergy status to narcotic agent

== ENCOUNTER 2019-07-17 11:00 | Emergency (ER) | payer MEDICAID ==
[~2019-07-17] VITALS: Ht 157.5 cm; Wt 72.2 kg
[2019-07-17 11:10] VITALS: Ht 157.5 cm; Wt 72.2 kg
[2019-07-17 12:07] VITALS: BP 121/75
== END 2019-07-17 12:07 | disposition home or self-care (01) ==
LOC: ED 11:00
DX: S16.1XXA Strain of muscle, fascia and tendon at neck level, initial encounter (principal); J45.909 Unspecified asthma, uncomplicated; E03.9 Hypothyroidism, unspecified; G89.29 Other chronic pain; R07.0 Pain in throat; Z90.710 Acquired absence of both cervix and uterus; Z98.890 Other specified postprocedural states; Z88.6 Allergy status to analgesic agent; Z88.5 Allergy status to narcotic agent; V49.9XXA Car occupant (driver) (passenger) injured in unspecified traffic accident, initial encounter; Y93.I9 Activity, other involving external motion; Y92.413 State road as the place of occurrence of the external cause; Y99.8 Other external cause status

== ENCOUNTER 2019-11-05 14:41 | Emergency (ER) | payer MEDICAID ==
[~2019-11-05] VITALS: Ht 154.9 cm; Wt 67.1 kg
[2019-11-05 14:47] VITALS: Ht 154.9 cm; Wt 67.1 kg
[2019-11-05 16:49] VITALS: BP 122/85
== END 2019-11-05 16:49 | disposition home or self-care (01) ==
LOC: ED 14:41
DX: R06.02 Shortness of breath (principal); R06.2 Wheezing; E03.9 Hypothyroidism, unspecified; G89.29 Other chronic pain; Z76.0 Encounter for issue of repeat prescription; J45.909 Unspecified asthma, uncomplicated; Z90.710 Acquired absence of both cervix and uterus; Z85.42 Personal history of malignant neoplasm of other parts of uterus; Z98.890 Other specified postprocedural states; Z88.5 Allergy status to narcotic agent; Z88.8 Allergy status to other drugs, medicaments and biological substances; Z87.19 Personal history of other diseases of the digestive system

== ENCOUNTER 2019-11-05 23:40 | Emergency (ER) | payer MEDICAID ==
[~2019-11-05] VITALS: Ht 157.5 cm; Wt 68.1 kg
[2019-11-05 23:52] VITALS: Ht 157.5 cm; Wt 68.1 kg
[2019-11-06 01:49] VITALS: BP 135/85
== END 2019-11-06 01:49 | disposition home or self-care (01) ==
LOC: ED 23:40
DX: J45.901 Unspecified asthma with (acute) exacerbation (principal); J45.909 Unspecified asthma, uncomplicated; G89.29 Other chronic pain; E03.9 Hypothyroidism, unspecified; Z90.710 Acquired absence of both cervix and uterus; Z88.8 Allergy status to other drugs, medicaments and biological substances; Z88.5 Allergy status to narcotic agent; Z85.42 Personal history of malignant neoplasm of other parts of uterus
CPT/HCPCS: J7512; J7620

== ENCOUNTER 2019-11-17 01:44 | Emergency (ER) | payer MEDICAID ==
[~2019-11-17] VITALS: Ht 154.9 cm; Wt 67.6 kg
[2019-11-17 01:57] VITALS: Ht 154.9 cm; Wt 67.6 kg
[2019-11-17 02:55] VITALS: BP 106/87
== END 2019-11-17 02:55 | disposition home or self-care (01) ==
LOC: ED 01:44
DX: S20.461A Insect bite (nonvenomous) of right back wall of thorax, initial encounter (principal); J45.909 Unspecified asthma, uncomplicated; E03.9 Hypothyroidism, unspecified; Z88.6 Allergy status to analgesic agent; Z60.2 Problems related to living alone; W57.XXXA Bitten or stung by nonvenomous insect and other nonvenomous arthropods, initial encounter; Y93.89 Activity, other specified; Y92.89 Other specified places as the place of occurrence of the external cause; Y99.8 Other external cause status

== ENCOUNTER 2019-11-19 14:52 | Emergency (ER) | payer MEDICAID ==
[~2019-11-19] VITALS: Ht 165.1 cm; Wt 67.6 kg
[2019-11-19 15:02] VITALS: BP 114/81; Ht 165.1 cm; Wt 67.6 kg
== END 2019-11-19 16:25 | disposition home or self-care (01) ==
LOC: ED 14:52
DX: K22.2 Esophageal obstruction (principal); J45.909 Unspecified asthma, uncomplicated; E03.9 Hypothyroidism, unspecified; G89.29 Other chronic pain; Z98.890 Other specified postprocedural states; Z85.42 Personal history of malignant neoplasm of other parts of uterus; Z90.710 Acquired absence of both cervix and uterus; Z88.5 Allergy status to narcotic agent
CPT/HCPCS: J2930

== ENCOUNTER 2019-11-23 01:43 | Emergency (ER) | payer MEDICAID ==
[~2019-11-23] VITALS: Ht 154.9 cm; Wt 68.7 kg
[2019-11-23 01:56] VITALS: Ht 154.9 cm; Wt 68.7 kg
[2019-11-23 04:51] VITALS: BP 147/82
== END 2019-11-23 04:51 | disposition home or self-care (01) ==
LOC: ED 01:43
DX: R06.00 Dyspnea, unspecified (principal); J45.909 Unspecified asthma, uncomplicated; Z90.710 Acquired absence of both cervix and uterus; E03.9 Hypothyroidism, unspecified; Z98.890 Other specified postprocedural states; Z88.5 Allergy status to narcotic agent; Z88.6 Allergy status to analgesic agent

== ENCOUNTER 2019-11-25 02:14 | Emergency (ER) | payer MEDICAID ==
[~2019-11-25] VITALS: Ht 157.5 cm; Wt 68.3 kg
[2019-11-25 02:28] VITALS: Ht 157.5 cm; Wt 68.3 kg
[2019-11-25 02:56] VITALS: BP 130/91
== END 2019-11-25 02:56 | disposition home or self-care (01) ==
LOC: ED 02:14
DX: R06.00 Dyspnea, unspecified (principal); R06.02 Shortness of breath; J45.909 Unspecified asthma, uncomplicated; E03.9 Hypothyroidism, unspecified; G89.29 Other chronic pain; Z90.710 Acquired absence of both cervix and uterus; Z98.890 Other specified postprocedural states; Z85.42 Personal history of malignant neoplasm of other parts of uterus; Z88.5 Allergy status to narcotic agent; Z88.8 Allergy status to other drugs, medicaments and biological substances

== ENCOUNTER 2019-11-27 02:32 | Emergency (ER) | payer MEDICAID ==
[~2019-11-27] VITALS: Ht 157.5 cm; Wt 68.2 kg
[2019-11-27 02:37] VITALS: Ht 157.5 cm; Wt 68.2 kg
[2019-11-27 06:22] VITALS: BP 142/107
== END 2019-11-27 06:22 | disposition home or self-care (01) ==
LOC: ED 02:32
DX: R06.00 Dyspnea, unspecified (principal); R06.2 Wheezing; J45.909 Unspecified asthma, uncomplicated; E03.9 Hypothyroidism, unspecified; G89.29 Other chronic pain; Z98.890 Other specified postprocedural states; Z90.710 Acquired absence of both cervix and uterus; Z88.8 Allergy status to other drugs, medicaments and biological substances; Z88.5 Allergy status to narcotic agent; Z85.42 Personal history of malignant neoplasm of other parts of uterus

== ENCOUNTER 2019-12-03 02:05 | Emergency (ER) | payer MEDICAID ==
[~2019-12-03] VITALS: Ht 157.5 cm; Wt 68.9 kg
[2019-12-03 02:29] VITALS: Ht 157.5 cm; Wt 68.9 kg
[2019-12-03 04:00] VITALS: BP 112/53
== END 2019-12-03 04:00 | disposition home or self-care (01) ==
LOC: ED 02:05
DX: R06.00 Dyspnea, unspecified (principal); J45.909 Unspecified asthma, uncomplicated; E03.9 Hypothyroidism, unspecified; Z90.710 Acquired absence of both cervix and uterus; Z98.890 Other specified postprocedural states; Z85.42 Personal history of malignant neoplasm of other parts of uterus; Z86.711 Personal history of pulmonary embolism; Z88.8 Allergy status to other drugs, medicaments and biological substances
CPT/HCPCS: J7613

== ENCOUNTER 2020-01-03 11:54 | Emergency (ER) | payer MEDICAID ==
[~2020-01-03] VITALS: Ht 157.5 cm; Wt 69.4 kg
[2020-01-03 12:06] VITALS: BP 103/68; Ht 157.5 cm; Wt 69.4 kg
== END 2020-01-03 12:36 | disposition home or self-care (01) ==
LOC: ED 11:54
DX: R06.02 Shortness of breath (principal); J45.909 Unspecified asthma, uncomplicated; E03.9 Hypothyroidism, unspecified; G89.29 Other chronic pain; Z76.0 Encounter for issue of repeat prescription; Z98.890 Other specified postprocedural states; Z90.710 Acquired absence of both cervix and uterus; Z85.42 Personal history of malignant neoplasm of other parts of uterus; Z88.8 Allergy status to other drugs, medicaments and biological substances; Z88.5 Allergy status to narcotic agent

== ENCOUNTER 2020-01-27 03:12 | Emergency (ER) | payer MEDICAID ==
[~2020-01-27] VITALS: Ht 157.5 cm; Wt 70.3 kg
[2020-01-27 03:22] VITALS: Ht 157.5 cm; Wt 70.3 kg
[2020-01-27 03:54] VITALS: BP 127/88
== END 2020-01-27 03:54 | disposition home or self-care (01) ==
LOC: ED 03:12
DX: E03.9 Hypothyroidism, unspecified (principal); J45.909 Unspecified asthma, uncomplicated; Z76.0 Encounter for issue of repeat prescription; Z88.6 Allergy status to analgesic agent; Z88.5 Allergy status to narcotic agent; Z98.890 Other specified postprocedural states; Z90.710 Acquired absence of both cervix and uterus

== ENCOUNTER 2020-02-28 13:15 | Emergency (ER) | payer MEDICAID ==
[~2020-02-28] VITALS: Ht 157.5 cm; Wt 69.4 kg
[2020-02-28 13:24] VITALS: Ht 157.5 cm; Wt 69.4 kg
[2020-02-28 14:13] VITALS: BP 118/83
== END 2020-02-28 14:13 | disposition home or self-care (01) ==
LOC: ED 13:15
DX: K59.00 Constipation, unspecified (principal); J45.909 Unspecified asthma, uncomplicated; E03.9 Hypothyroidism, unspecified; Z98.890 Other specified postprocedural states; Z90.710 Acquired absence of both cervix and uterus; Z85.42 Personal history of malignant neoplasm of other parts of uterus; Z88.5 Allergy status to narcotic agent; Z88.8 Allergy status to other drugs, medicaments and biological substances

== ENCOUNTER 2020-03-31 14:15 | Emergency (ER) | payer MEDICAID ==
[~2020-03-31] VITALS: Ht 154.9 cm; Wt 70.8 kg
[2020-03-31 14:32] VITALS: Ht 154.9 cm; Wt 70.8 kg
[2020-03-31 15:28] VITALS: BP 116/63
== END 2020-03-31 15:28 | disposition home or self-care (01) ==
LOC: ED 14:15
DX: K59.00 Constipation, unspecified (principal); J45.909 Unspecified asthma, uncomplicated; E03.9 Hypothyroidism, unspecified; Z88.5 Allergy status to narcotic agent; Z76.0 Encounter for issue of repeat prescription; Z88.6 Allergy status to analgesic agent

== ENCOUNTER 2020-04-21 13:41 | Emergency (ER) | payer MEDICAID ==
[2020-04-21 14:04] VITALS: Ht 157.5 cm
[2020-04-21 15:02] LABS: UA SPECIFIC GRAVITY <=1.005 (1.005-1.035); microscopic required? YES; urine erythrocyte TRACE (NEGATIVE)
[2020-04-21 15:56] VITALS: BP 118/66
== END 2020-04-21 15:56 | disposition home or self-care (01) ==
LOC: ED 13:41
PROVIDERS: Emergency Medicine
DX: R10.30 Lower abdominal pain, unspecified (principal); R31.9 Hematuria, unspecified; J45.909 Unspecified asthma, uncomplicated; E03.9 Hypothyroidism, unspecified; G89.29 Other chronic pain; M54.6 Pain in thoracic spine; Z88.5 Allergy status to narcotic agent; Z90.710 Acquired absence of both cervix and uterus

== ENCOUNTER 2020-04-29 03:11 | Emergency (ER) | payer MEDICAID ==
[~2020-04-29] VITALS: Ht 157.5 cm; Wt 71.2 kg
[2020-04-29 03:19] VITALS: Ht 157.5 cm; Wt 71.2 kg
[2020-04-29 04:29] VITALS: BP 110/71
== END 2020-04-29 04:29 | disposition home or self-care (01) ==
LOC: ED 03:11
DX: R53.83 Other fatigue (principal); E03.9 Hypothyroidism, unspecified; J45.909 Unspecified asthma, uncomplicated; G89.29 Other chronic pain; Z76.0 Encounter for issue of repeat prescription; Z90.710 Acquired absence of both cervix and uterus; Z98.890 Other specified postprocedural states; Z85.42 Personal history of malignant neoplasm of other parts of uterus; Z88.5 Allergy status to narcotic agent; Z88.8 Allergy status to other drugs, medicaments and biological substances

== ENCOUNTER 2020-05-05 06:57 | Emergency (ER) | payer MEDICAID ==
[~2020-05-05] VITALS: Ht 157.5 cm; Wt 70.1 kg
[2020-05-05 07:08] VITALS: Ht 157.5 cm; Wt 70.1 kg
[2020-05-05 08:05] VITALS: BP 124/87
== END 2020-05-05 08:05 | disposition home or self-care (01) ==
LOC: ED 06:57
DX: K59.00 Constipation, unspecified (principal); J45.909 Unspecified asthma, uncomplicated; E03.9 Hypothyroidism, unspecified; G89.29 Other chronic pain; M54.6 Pain in thoracic spine; Z90.710 Acquired absence of both cervix and uterus; Z88.5 Allergy status to narcotic agent; Z88.8 Allergy status to other drugs, medicaments and biological substances

== ENCOUNTER 2020-05-09 02:50 | Emergency (ER) | payer MEDICAID ==
[~2020-05-09] VITALS: Ht 157.5 cm; Wt 70.8 kg
[2020-05-09 02:58] VITALS: Ht 157.5 cm; Wt 70.8 kg
[2020-05-09 03:37] LABS: CALCIUM 8.6 mg/dL (8.5-10.1); CARBON DIOXIDE 33.3 mmol/L (21-32); CHLORIDE SERUM 103 mmol/L (98-107); CREATININE SERUM 0.9 mg/dL (0.6-1.0); GFR1 > 60 mL/min; GLUCOSE SERUM 108 mg/dL (74-106); PLATELET COUNT 281 x10^3mcL (130-400); POTASSIUM SERUM 3.6 mmol/L (3.5-5.1); RED CELL DISTRIBUTION WIDTH 13.8 % (11.5-14.5); SODIUM SERUM 139 mmol/L (136-145)
[2020-05-09 03:41] LABS: ALBUMIN 3.7 g/dL (3.4-5.0); ALKALINE PHOSPHATASE 88 U/L (46-116); ALT/SGPT 18 U/L (14-59); AST/SGOT 14 U/L (15-37); BILIRUBIN TOTAL 0.37 mg/dL (0.20-1.00); CHOLESTEROL 194 mg/dL (<200); LIPASE 212 IU/L (73-393); TOTAL PROTEIN, SERUM 7.2 g/dL (6.4-8.2); TRIGLYCERIDES 119 mg/dL (<150)
[2020-05-09 03:42] LABS: CHOLESTEROL/HDL RATIO 2.6; HDL CHOLESTEROL 76 mg/dL (40-60)
[2020-05-09 07:33] VITALS: BP 113/70
== END 2020-05-09 07:33 | disposition home or self-care (01) ==
LOC: ED 02:50
PROVIDERS: Specialist
DX: K59.00 Constipation, unspecified (principal); J45.909 Unspecified asthma, uncomplicated; E03.9 Hypothyroidism, unspecified; G89.29 Other chronic pain; Z85.42 Personal history of malignant neoplasm of other parts of uterus; Z90.710 Acquired absence of both cervix and uterus; Z98.890 Other specified postprocedural states; Z88.5 Allergy status to narcotic agent; Z88.8 Allergy status to other drugs, medicaments and biological substances
CPT/HCPCS: Q9967

== ENCOUNTER 2020-05-20 03:26 | Emergency (ER) | payer MEDICAID ==
[~2020-05-20] VITALS: Ht 157.5 cm; Wt 69.4 kg
[2020-05-20 03:35] VITALS: Ht 157.5 cm; Wt 69.4 kg
[2020-05-20 05:01] VITALS: BP 105/66
== END 2020-05-20 05:01 | disposition home or self-care (01) ==
LOC: ED 03:26
DX: K59.00 Constipation, unspecified (principal); G89.29 Other chronic pain; J45.909 Unspecified asthma, uncomplicated; Z88.5 Allergy status to narcotic agent; Z90.710 Acquired absence of both cervix and uterus
CPT/HCPCS: Q0092

== ENCOUNTER 2020-06-01 03:18 | Emergency (ER) | payer MEDICAID ==
[~2020-06-01] VITALS: Ht 157.5 cm; Wt 68.9 kg
[2020-06-01 03:44] VITALS: Ht 157.5 cm; Wt 68.9 kg
[2020-06-01 04:58] VITALS: BP 115/67
== END 2020-06-01 04:55 | disposition home or self-care (01) ==
LOC: ED 03:18
DX: R07.89 Other chest pain (principal); J45.909 Unspecified asthma, uncomplicated; E03.9 Hypothyroidism, unspecified; G89.29 Other chronic pain; Z76.0 Encounter for issue of repeat prescription; Z90.710 Acquired absence of both cervix and uterus; Z98.890 Other specified postprocedural states; Z88.5 Allergy status to narcotic agent; Z85.42 Personal history of malignant neoplasm of other parts of uterus

== ENCOUNTER 2020-06-06 04:34 | Emergency (ER) | payer MEDICAID ==
[~2020-06-06] VITALS: Ht 157.5 cm; Wt 68.9 kg
[2020-06-06 04:41] VITALS: Ht 157.5 cm; Wt 68.9 kg
[2020-06-06 06:02] VITALS: BP 113/72
== END 2020-06-06 06:02 | disposition home or self-care (01) ==
LOC: ED 04:34
DX: R13.10 Dysphagia, unspecified (principal); R07.89 Other chest pain; R06.02 Shortness of breath; J45.909 Unspecified asthma, uncomplicated; E03.9 Hypothyroidism, unspecified; Z90.710 Acquired absence of both cervix and uterus; Z85.54 Personal history of malignant neoplasm of ureter; Z98.890 Other specified postprocedural states; Z88.5 Allergy status to narcotic agent

== ENCOUNTER 2020-07-07 13:59 | Emergency (ER) | payer MEDICAID ==
[~2020-07-07] VITALS: Ht 162.6 cm; Wt 68.5 kg
[2020-07-07 14:13] VITALS: BP 117/89; Ht 162.6 cm; Wt 68.5 kg
== END 2020-07-07 15:31 | disposition home or self-care (01) ==
LOC: ED 13:59
DX: Z53.21 Procedure and treatment not carried out due to patient leaving prior to being seen by health care provider (principal)

== ENCOUNTER 2020-07-08 03:31 | Emergency (ER) | payer MEDICAID ==
[~2020-07-08] VITALS: Ht 157.5 cm; Wt 69.6 kg
[2020-07-08 04:29] VITALS: BP 124/73
== END 2020-07-08 04:29 | disposition home or self-care (01) ==
LOC: ED 03:31
DX: N39.0 Urinary tract infection, site not specified (principal); E03.9 Hypothyroidism, unspecified; Z88.5 Allergy status to narcotic agent; J45.909 Unspecified asthma, uncomplicated; Z90.710 Acquired absence of both cervix and uterus; Z85.42 Personal history of malignant neoplasm of other parts of uterus; Z98.890 Other specified postprocedural states

== ENCOUNTER 2020-10-07 02:41 | Emergency (ER) | payer MEDICAID ==
[~2020-10-07] VITALS: Ht 157.5 cm; Wt 66.7 kg
[2020-10-07 02:58] VITALS: Ht 157.5 cm; Wt 66.7 kg
[2020-10-07 03:53] VITALS: BP 131/77
== END 2020-10-07 03:53 | disposition home or self-care (01) ==
LOC: ED 02:41
DX: K22.2 Esophageal obstruction (principal); J45.909 Unspecified asthma, uncomplicated; E03.9 Hypothyroidism, unspecified; Z76.0 Encounter for issue of repeat prescription; G89.29 Other chronic pain; Z90.710 Acquired absence of both cervix and uterus; Z98.890 Other specified postprocedural states; Z85.42 Personal history of malignant neoplasm of other parts of uterus; Z88.5 Allergy status to narcotic agent

== ENCOUNTER 2020-10-11 15:00 | Emergency (ER) | payer MEDICAID ==
[~2020-10-11] VITALS: Ht 157.5 cm; Wt 66.7 kg
[2020-10-11 15:14] VITALS: Ht 157.5 cm; Wt 66.7 kg
[2020-10-11 16:33] VITALS: BP 127/68
== END 2020-10-11 16:33 | disposition home or self-care (01) ==
LOC: ED 15:00
DX: R13.10 Dysphagia, unspecified (principal); J45.909 Unspecified asthma, uncomplicated; Z76.0 Encounter for issue of repeat prescription; Z88.5 Allergy status to narcotic agent; Z85.42 Personal history of malignant neoplasm of other parts of uterus

== ENCOUNTER 2020-10-25 03:13 | Emergency (ER) | payer MEDICAID ==
[~2020-10-25] VITALS: Ht 157.5 cm; Wt 67.6 kg
[2020-10-25 03:22] VITALS: Ht 157.5 cm; Wt 67.6 kg
[2020-10-25 04:38] VITALS: BP 112/61
== END 2020-10-25 04:38 | disposition home or self-care (01) ==
LOC: ED 03:13
DX: R07.0 Pain in throat (principal); G89.29 Other chronic pain; J45.909 Unspecified asthma, uncomplicated; Z85.42 Personal history of malignant neoplasm of other parts of uterus; Z85.51 Personal history of malignant neoplasm of bladder; Z88.5 Allergy status to narcotic agent

== ENCOUNTER 2020-11-07 02:39 | Emergency (ER) | payer MEDICAID ==
[~2020-11-07] VITALS: Ht 157.5 cm; Wt 68.0 kg
[2020-11-07 02:52] VITALS: Ht 157.5 cm; Wt 68.0 kg
[2020-11-07 03:47] VITALS: BP 110/71
== END 2020-11-07 03:47 | disposition home or self-care (01) ==
LOC: ED 02:39
DX: N39.0 Urinary tract infection, site not specified (principal); Z88.5 Allergy status to narcotic agent; J45.909 Unspecified asthma, uncomplicated

== ENCOUNTER 2020-11-12 14:00 | Emergency (ER) | payer MEDICAID ==
[~2020-11-12] VITALS: Ht 157.5 cm; Wt 68.0 kg
[2020-11-12 14:06] VITALS: Ht 157.5 cm; Wt 68.0 kg
[2020-11-12 16:35] VITALS: BP 120/60
== END 2020-11-12 16:35 | disposition home or self-care (01) ==
LOC: ED 14:00
DX: R41.0 Disorientation, unspecified (principal); J45.909 Unspecified asthma, uncomplicated; Z88.5 Allergy status to narcotic agent; Z88.6 Allergy status to analgesic agent
CPT/HCPCS: J1885